=== PATIENT | male | born 1960 | race Caucasian/White ===

== ENCOUNTER 2021-01-17 01:36 | Emergency (ER) | payer OTHER ==
[2021-01-17] MEDS ORDERED: HYDROmorphone 2 MG/ML SDV IVPUSH ONE (01:50)
[2021-01-17] MEDS ORDERED: Ondansetron 4 MG/2 ML SDV IVPUSH ONE (01:54)
[2021-01-17] MEDS ORDERED: Acetaminophen/HYDROcodone 325-5 MG Tab ONE (02:00)
[2021-01-17] MEDS ORDERED: Sodium Chloride 0.9% 1,000 ML IV ONE (02:20)
--- NOTE | 2021-01-17 10:29 | EDM.PDOC ---
ED HPI GENERAL MEDICAL PROBLEM - General Chief Complaint: Abdominal Pain Stated Complaint: ABD PAIN Time Seen by Provider: 01/17/21 01:45 - History of Present Illness INITIAL COMMENTS - FREE TEXT/NARRATIVE: Patient comes to the ER with complaints of abdominal pain that started about 10 hours ago. He states that it was feeling better a couple of times but then it got worse again. He tells me that he has a longstanding history of this kind of pain over the last couple of years he has had many episodes. He has had different scans and work-ups, and an exploratory surgery that did not find anything really to his knowledge. The patient did not vomit once earlier today, and states he only ate a few crackers over the course of the day. He denies running a fever, or having any recent falls or injuries. He rates his pain at 9 or 10/10. He did take a couple of pain meds today from a previous script without much relief. - Related Data Allergies Allergy/AdvReac Type Severity Reaction Status Date / Time Sulfa (Sulfonamide Allergy Cannot Verified 01/17/21 02:23 Antibiotics) Remember Past Medical History Gastrointestinal History: Reports: GERD - Infectious Disease History Infectious Disease History: Reports: Chicken Pox Social & Family History - Tobacco Use Tobacco Use Status *Q: Unknown Ever Used Tobacco ED ROS GENERAL - Review of Systems Review Of Systems: Comprehensive ROS is negative, except as noted in HPI. GI/Abdominal: Reports: Abdominal Pain, Vomiting ED EXAM, GI/ABD - Physical Exam Exam: See Below General Appearance: Mild Distress (due to Abd pain.) GI/Abdominal Exam: Other (Abd is mildly distended and tender to palpation. B.S. are hypo-actice. Skin is warm and dry.) Course - Vital Signs Text/Narrative:: Labs and vital signs are nml. He was given Dilaudid 1 mg IV which controlled his pain well. NS 1 liter was given IV. Zofran also given IV. Pt was resting well since. Last Recorded V/S: Last Vital Signs Temp 97.9 F 01/17/21 01:39 Pulse 83 01/17/21 01:39 Resp 18 01/17/21 01:39 BP 129/94 H 01/17/21 01:39 Pulse Ox 95 01/17/21 01:39 - Orders/Labs/Meds Orders: Active Orders 24 hr Category Date Time Status Abdomen Pelvis wo Cont [CT] Stat Exams 01/17/21 01:52 Taken Labs: Laboratory Tests 01/17/21 01/17/21 01/17/21 Range/Units 02:00 02:00 02:00 WBC 8.1 (4.0-11.0) K/uL RBC 4.84 (4.50-6.50) M/uL Hgb 14.8 (13.0-18.0) g/dL Hct 43.8 (40.0-54.0) % MCV 91 (76-96) fL MCH 30.6 (27.0-32.0) pg MCHC 33.8 (31.0-35.0) g/dL RDW 13.0 (11.0-16.0) % Plt Count 172 (150-400) K/uL MPV 9.7 (6.0-10.0) fL Neut % (Auto) 67.3 (45.0-70.0) % Lymph % (Auto) 24.8 (20.0-40.0) % Smith % (Auto) 5.8 (3.0-10.0) % Eos % (Auto) 1.9 (1.0-5.0) % Baso % (Auto) 0.2 (0.0-0.5) % Neut # (Auto) 5.45 (2.00-7.50) K/uL Lymph # (Auto) 2.01 (1.50-4.00) K/uL Smith # (Auto) 0.47 (0.20-0.80) K/uL Eos # (Auto) 0.15 (0.04-0.40) K/uL Baso # (Auto) 0.02 (0.02-0.10) K/uL Sodium 139 (136-145) mmol/L Potassium 3.8 (3.5-5.1) mmol/L Chloride 101 (98-107) mmol/L Carbon Dioxide 24.2 (21.0-32.0) mmol/L Anion Gap 17.6 H (5.0-15.0) mmol/L BUN 18 (8-26) mg/dL Creatinine 1.23 (0.70-1.30) mg/dL Est Cr Clr Drug Dosing TNP Estimated GFR (MDRD) > 60 (>60) MLS/MIN BUN/Creatinine Ratio 14.6 (6-25) Glucose 142 H (74-100) mg/dL Calcium 8.5 (8.5-10.1) mg/dL Total Bilirubin 0.5 (0.0-1.0) mg/dL AST 15 (15-37) U/L ALT 30 (12-78) U/L Alkaline Phosphatase 52 (46-116) U/L Total Protein 7.1 (6.4-8.2) g/dL Albumin 3.7 (3.4-5.0) g/dL Globulin 3.4 (2.2-4.2) g/dL Albumin/Globulin Ratio 1.1 (0.8-2.0) Lipase 96 (73-393) U/L Meds: Medications Discontinued Medications Generic Name Dose Route Start Last Admin Trade Name Gabeq PRN Reason Stop Dose Admin Hydrocodone Bitart/Acetaminophen 10 tab 01/17/21 02:00 Acetaminophen/Hydrocodone 325-5 Mg Tab .ROUTE 01/17/21 02:01 .STK-MED ONE Hydromorphone HCl 1 mg 01/17/21 01:50 01/17/21 01:59 Hydromorphone 2 Mg/Ml Sdv IVPUSH 01/17/21 01:51 1 mg ONETIME ONE Administration Sodium Chloride 1,000 mls @ 999 mls/hr 01/17/21 02:20 01/17/21 04:00 Normal Saline IV 01/17/21 03:20 Infused .BOLUS ONE Infusion Ondansetron HCl 4 mg 01/17/21 01:54 01/17/21 02:05 Ondansetron 4 Mg/2 Ml Sdv IVPUSH 01/17/21 01:55 4 mg ONETIME ONE Administration - Re-Assessments/Exams Free Text/Narrative Re-Assessment/Exam: 01/17/21 10:29 CT scan shows loops of small bowel that are moderately distended with mesenteric edema and adjacent fluid radiology did consult by phone with concerns for a closed-loop small bowel obstruction possibly will be related to a hernia or adhesion. I relayed this information to the patient as well as the need for further evaluation that would include a lactate level and a surgical consult. The patient tells me he feels much better at this time, and he has been through these symptoms many times in the past. He would like to go home and see how things go. I explained to the patient that further evaluation and bowel rest is the usual treatment measures for a small bowel obstruction while waiting for it to resolve. I advised patient that he would need to come back in if his symptoms get worse in any way. He agrees and is also instructed to only take small amounts of water as tolerated until he feels he can eat something more. He was given Vicodin tablets to go home taking 1 tablet every 6 hours as needed for pain. The patient should be monitored closely. He came here with a friend, he lives in the [facility] himself but agrees to come back in for further evaluation and treatment as needed if his symptoms should get worse. Upon tarsha ving our facility the patient is pain-free and states that he feels fine. Departure - Departure Time of Disposition: 04:15 Disposition: Home, Self-Care 01 Clinical Impression: Small bowel obstruction - Discharge Information *PRESCRIPTION DRUG MONITORING PROGRAM REVIEWED*: Not Applicable *COPY OF PRESCRIPTION DRUG MONITORING REPORT IN PATIENT PEDRO: Not Applicable Instructions: Abdominal Pain, Adult, [id number] Forms: ED Department Discharge, ED Return to Work/School Form Additional Instructions: Patient is persistent about going home, not wanting to stay for inpatient measures at this time. He agrees to be careful, monitor his symptoms closely, take small swallows of water only until he feels he can do better. He does have Vicodin to take as needed for pain control. He is to come in if his symptoms get worse in any way for further evaluation and admission. Patient has no further questions. Sepsis Event Note (ED) - Evaluation Sepsis Screening Result: No Definite Risk - Focused Exam Vital Signs: Vital Signs Temp Pulse Resp BP Pulse Ox 01/17/21 01:39 97.9 F 83 18 129/94 H 95 - My Orders Last 24 Hours: My Active Orders 01/17/21 01:52 Abdomen Pelvis wo Cont [CT] Stat - Assessment/Plan Last 24 Hours: My Active Orders 01/17/21 01:52 Abdomen Pelvis wo Cont [CT] Stat
--- NOTE | 2021-01-17 13:20 | CT ---
Date of Service: 01/17/21 Clinical Data: Abd pain. Epigastric to mid Abd. UNENHANCED ABDOMEN AND PELVIC CT: Multislice acquisition through the abdomen and pelvis without IV or oral contrast was performed. No priors. There are atelectatic changes of the dependent portions of both lower lungs. The lung bases are otherwise clear. The heart size is normal. There are mild coronary artery calcifications. There are calcifications in the region of the aortic valve. No pericardial effusion. The liver is normal size with homogeneous attenuation. No focal hepatic lesions. The gallbladder appears normal. The spleen appears normal. The pancreas appears normal. The right and left adrenals appear normal. The right and left kidneys appear normal. No nephrocalcinosis or nephrolithiasis. No hydronephrosis or hydroureter. The bladder is partially fluid filled. It appears normal. The prostate is enlarged. The appendix is not distended. No evidence of appendicitis. The stomach is fluid and gas filled and moderately distended. The proximal small bowel is not distended. There are, however, multiple fluid and gas filled, distended loops of small bowel within the mid and lower abdomen with scattered air-fluid levels. The distal ileum is not distended. The findings are consistent with a localized ileus or obstruction. The possibility of a small bowel volvulus or internal hernia should be considered. Surgical consultation recommended. No free air. No free fluid. No adenopathy. No aortic aneurysm. There is mild degenerative disk disease throughout the lower thoracic and lumbar spine. There is grade 1 anterolisthesis of L5 on S1 with L5 spondylolysis. No other significant findings. IMPRESSION: Abnormal exam. See above. The patient's physician was notified of the findings by telephone and by [facility] preliminary radiology report. [id number] [facility]
== END 2021-01-17 04:12 | disposition home or self-care (01) ==
LOC: LB.ED 01:36
DX: K56.609 Unspecified intestinal obstruction, unspecified as to partial versus complete obstruction (principal); Z88.2 Allergy status to sulfonamides
CPT/HCPCS: 36415; 74176; 80053; 83690; 85025; 96374; 96375; 99284-25; A9270-GY; J1170; J2405; J7030